=== PATIENT | female | born 2005 | race Caucasian/White ===

== ENCOUNTER 2024-09-09 17:39 | Emergency (ER) | payer SELFPAY ==
[~2024-09-09] VITALS: Ht 175.3 cm; Wt 148.3 kg
[~2024-09-09 17:39] MED LIST: AMOX TR-K CLV1 EAC2 PO; AUGMENTIN 500-1 EACH PO; CIPRODEX OTIC7.5 ML LEFT EAR; CORTISPORIN-TC10 M1 LEFT EAR
[2024-09-09] MEDS ORDERED: AZITHROMYCIN250 MG PO (18:15)
[2024-09-09 18:56] LABS: INFLUENZAE A&B ANTIGEN (RAPID) NEGATIVE (NEGATIVE); STREPTOCOCCUS GRP A ANTIGEN POSITIVE (NEGATIVE)
[2024-09-09 19:07] VITALS: PULSE 106; RESP 16; TEMP 101.5; O2SAT 100
== END 2024-09-09 19:07 | disposition home or self-care (01) ==
LOC: ER 18:25
DX: J02.0 Streptococcal pharyngitis (principal); Z11.52 Encounter for screening for COVID-19
CPT/HCPCS: 0223U; 36415; 83518; 87400; 99282